=== PATIENT | female | born 1975 | race Hispanic/Latino ===

== ENCOUNTER → 2024-01-21 | Outpatient (CLI) | payer OTHER ==
[~2024-01-21] VITALS: Ht 20.3 cm; Wt 146.9 kg
== END | disposition home or self-care (01) ==
LOC: DTH 08:00
PROVIDERS: ATTEND Surgery
DX: E66.01 Morbid (severe) obesity due to excess calories (principal); E11.9 Type 2 diabetes mellitus without complications; K21.9 Gastro-esophageal reflux disease without esophagitis; E78.00 Pure hypercholesterolemia, unspecified; K76.0 Fatty (change of) liver, not elsewhere classified; G47.33 Obstructive sleep apnea (adult) (pediatric); Z68.41 Body mass index [BMI] 40.0-44.9, adult; Z71.3 Dietary counseling and surveillance
CPT/HCPCS: 97802

== ENCOUNTER → 2024-01-21 | Outpatient (CLI) | payer MEDICARE ==
[2024-01-21 10:17] LABS: HEMOGLOBIN A1C 11.8 % (4.0-6.0)
[2024-01-21 10:21] LABS: BASOPHILS # (AUTO) 0.06 K/uL (0.00-0.20); BASOPHILS % (AUTO) 0.7 % (0.0-5.0); EOSINOPHILS # (AUTO) 0.21 K/uL (0.00-0.70); EOSINOPHILS % (AUTO) 2.4 % (0.0-8.0); HEMATOCRIT 42.1 % (36-48); IMMATURE GRANULOCYTE ABSOLUTE 0.03 K/uL (0-1); LYMPHOCYTES # (AUTO) 2.4 K/uL (1.0-4.8); LYMPHOCYTES % (AUTO) 26.8 % (21.0-51.0); MEAN CORPUSCULAR HEMOGLOBIN 26.7 pg (27.0-33.0); MEAN CORPUSCULAR HGB CONC 30.6 g/dL (32.0-36.0); MEAN CORPUSCULAR VOLUME 87.2 fL (79-99); MONOCYTES # (AUTO) 0.5 K/uL (0.1-1.0); NEUTROPHILS # (AUTO) 5.6 K/uL (1.8-7.7); NEUTROPHILS % (AUTO) 63.8 % (40.0-77.0); PLATELET COUNT (AUTO) 321 K/uL (130-400); RED BLOOD CELL COUNT(AUTO) 4.83 MIL/uL (4.00-5.50); RED CELL DISTRIBUTION WIDTH 15.8 % (11.0-15.5); WHITE BLOOD COUNT (AUTO) 8.8 K/uL (4.8-10.8)
[2024-01-21 10:48] LABS: ALBUMIN 3.4 g/dL (3.5-5.0); BILIRUBIN,TOTAL 0.2 mg/dL (0.2-1.0); CREATININE 1.1 mg/dL (0.5-1.0); MAGNESIUM 1.6 mg/dL (1.80-2.40); T4 (THYROXINE) 6.8 ug/dL (4.7-13.3); THYROID STIMULATING HORMONE 70.44 uIU/mL (0.36-3.74); TOTAL PROTEIN, SERUM 7.7 g/dL (6.0-8.3)
== END | disposition home or self-care (01) ==
LOC: LAB 09:14
PROVIDERS: ATTEND Surgery
DX: Z01.818 Encounter for other preprocedural examination (principal); E11.9 Type 2 diabetes mellitus without complications; E78.00 Pure hypercholesterolemia, unspecified; G47.33 Obstructive sleep apnea (adult) (pediatric); K21.9 Gastro-esophageal reflux disease without esophagitis; K76.0 Fatty (change of) liver, not elsewhere classified; E66.01 Morbid (severe) obesity due to excess calories
CPT/HCPCS: 36415; 71045; 80053; 80061; 82306; 82607; 82746; 83036; 83540; 83735; 84207; 84425; 84436; 84443; 84446; 84481; 84590; 84630; 85025; 93005

== ENCOUNTER → 2024-01-30 | Outpatient (CLI) | payer OTHER | END | disposition home or self-care (01) | LOC: OIH 12:51 | PROVIDERS: ATTEND Internal Medicine Cardiovascular Disease | DX: Z13.6 Encounter for screening for cardiovascular disorders (principal) | CPT/HCPCS: 75571 ==

== ENCOUNTER → 2024-02-18 | Outpatient (CLI) | payer OTHER | END | disposition home or self-care (01) | LOC: DTH 14:57 | PROVIDERS: ATTEND Surgery | DX: E66.01 Morbid (severe) obesity due to excess calories (principal); E11.9 Type 2 diabetes mellitus without complications; K21.9 Gastro-esophageal reflux disease without esophagitis; E78.00 Pure hypercholesterolemia, unspecified; K76.0 Fatty (change of) liver, not elsewhere classified; Z68.41 Body mass index [BMI] 40.0-44.9, adult; Z71.3 Dietary counseling and surveillance | CPT/HCPCS: 97803 ==

== ENCOUNTER → 2024-03-12 | Outpatient (CLI) | payer OTHER | END | disposition home or self-care (01) | LOC: DTH 08:38 | PROVIDERS: ATTEND Surgery | DX: E66.01 Morbid (severe) obesity due to excess calories (principal); E11.9 Type 2 diabetes mellitus without complications; K21.9 Gastro-esophageal reflux disease without esophagitis; E78.00 Pure hypercholesterolemia, unspecified; Z68.41 Body mass index [BMI] 40.0-44.9, adult; Z71.3 Dietary counseling and surveillance | CPT/HCPCS: 97803 ==

== ENCOUNTER 2024-07-27 19:10 | Emergency (ER) | payer MEDICARE ==
[~2024-07-27] VITALS: Ht 172.7 cm; Wt 120.2 kg
[~2024-07-27 19:10] MED LIST: AZIL40TA PO; EMPA10TA PO; LAMO200T PO; LEVO175C2 PO; MULT-1367 PO; PITA4TAB2 PO; SITA1TAB6 PO; VITAD50000 PO
--- NOTE | 2024-07-27 19:28 | ERN ---
ED Note History of Present Illness Stated Complaint: C/O LOWER BACK PAIN WITH ABDOMINAL DISCOMFORT Chief Complaint: Back Pain-No Injury Time Seen by MD: 19:20 Dictation: PATIENT IS A 49-YEAR-OLD FEMALE COMING IN TODAY WITH DECREASED URINATION, CONSTIPATION FOR THREE DAYS, RIGHT FLANK PAIN THAT RADIATES TO RIGHT LOWER QUADRANT. SHE HAS NO NAUSEA VOMITING NO FEVER NO CHILLS. STATES SHE IS STATUS POST A GASTRIC BYPASS BY DR. ANNITA RAMIREZ AT [facility] [place] [facility] ONE MONTH AGO. Allergies: Coded Allergies: No Known Drug Allergies (Verified Allergy, Unknown, 06/19/24) adhesive tape (Unverified Allergy, Unknown, RASH, 06/19/24) indocyanine green (Unverified Allergy, Unknown, RASH, 06/19/24) levetiracetam (Unverified Adverse Reaction, Mild, SEIZURES, 06/19/24) Home Meds Reported Medications Multivitamin (Multivitamin) 1 Each Tablet, 1 TAB PO DAILY for 30 Days, #30 TAB 0 Refills 06/19/24 Empagliflozin (Jardiance) 10 Mg Tablet, 10 MG PO DAILY, TAB 06/19/24 Pitavastatin Calcium (Livalo) 4 Mg Tablet, 1 TAB PO DAILY for 30 Days, #30 TAB 0 Refills 06/19/24 Cholecalciferol (Vitamin D3) 1,250 Mcg (22517 Unit) Cap, 1 CAP PO QWEEK for 28 Days, #4 CAP 0 Refills 06/19/24 Levothyroxine Sodium (Levothyroxine) 175 Mcg Capsule, 1 CAP PO DAILY for 30 Days, #30 CAP 0 Refills 06/19/24 Azilsartan Medoxomil (Edarbi) 40 Mg Tablet, 1 TAB PO DAILY for 30 Days, #30 TAB 0 Refills 06/19/24 Lamotrigine (Lamictal) 200 Mg Tablet, 1.5 TAB PO BID for 30 Days, #60 TAB 0 Refills 06/19/24 Sitagliptin Phos/Metformin HCl (Janumet 50-1,000 mg Tablet) 50 Mg-1,000 Mg Tablet, 1 TAB PO BID for 30 Days, #60 TAB 0 Refills 06/19/24 Past Medical History Past Medical History: Seizure Additional Past Medical Hx: HX OF EPILEPSY Surgical History: Cholecystectomy, Other, Surgical History Other: GASTRIC BYPASS (06/2024); THYROIDECTOMY History: Not Applicable RN Note Reviewed/Agreed w/PFSH: Yes Review of System Dictation CONSTITUTIONAL: NEGATIVE EXCEPT FOR HPI HEAD/FACE: NEGATIVE EXCEPT FOR HPI EENT: NEGATIVE EXCEPT FOR HPI RESPIRATORY: NEGATIVE EXCEPT FOR HPI GASTROINTESTINAL/ABDOMINAL: NEGATIVE EXCEPT FOR HPI DECREASED URINATION/RIGHT FLANK PAIN RADIATES TO RIGHT LOWER QUADRANT LAST/CONSTIPATION THREE DAYS GENITOURINARY: NEGATIVE EXCEPT FOR HPI MUSCULOSKELETAL: NEGATIVE EXCEPT FOR HPI INTEGUMENTARY: NEGATIVE EXCEPT FOR HPI NEUROLOGICAL/PSYCH: NEGATIVE EXCEPT FOR HPI HEMATOLOGIC/LYMPHATIC: NEGATIVE EXCEPT FOR HPI ALL SYSTEMS NEGATIVE, EXCEPT NOTED ABOVE. 13 POINT REVIEW OF SYSTEMS ASSESSED AND ALL NEGATIVE EXCEPT FOR ABOVE. Initial Vital Sign VS Vital Signs Date Time Temp Pulse Resp B/P (MAP) Pulse Ox O2 Delivery O2 Flow Rate FiO2 07/27/24 19:12 98.8 68 20 109/69 100 Room Air Physical Exam Dictation VITAL SIGNS REVIEWED GENERAL APPEARANCE: ALERT, ORIENTED X 3, MILD ACUTE DISTRESS, WELL DEVELOPED, NOURISHED. OBESE HEAD AND FACE: NON-TRAUMATIC. EYES: PERRL, PINK CONJUNCTIVAS, EYELID NO TRAUMA, ANTERIOR CHAMBER WITH ARCUS SENILIS. EARS: PINNAS INTACT AND NO SIGNS OF TRAUMA OR ERYTHEMA EAR CANALS CLEAR AND NO DISCHARGE TM NO ERYTHEMA NOSE: NO DISCHARGE, NO BLEEDING. OROPHARYNX: MOUTH NORMAL, TONGUE PINK, PHARYNX CLEAR,NO ERYTHEMA, TONSILS NO EXUDATES, NO ABSCESSES NOTED, MUCOUS MEMBRANE MOIST NECK: SUPPLE, NON-TENDER, NO THYROMEGALY, NO MASSES, NO JVD, NO BRUITS BREAST:DEFERRED CHEST:NO TENDERNESS, NO CREPITUS, NO PARADOXICAL MOVEMENT, NO RETRACTIONS LUNGS:CLEAR, WELL-VENTILATED, SYMMETRIC, NO RALES, NO WHEEZING, NO RHONCHI, NO STRIDOR, GOOD BREATH SOUNDS BILATERALLY HEART: REGULAR RATE, REGULAR RHYTHM, NO MURMUR, NO GALLOPS VASCULAR: NO PERIPHERAL EDEMA, ABDOMEN: SOFT, POSITIVE BOWEL SOUNDS, NONDISTENDED, NO GUARDING, NONTENDER, NO REBOUND, NO MASSES NO HEPATOMEGALY, NO SPLENOMEGALY, NO RIVERA'S SIGN, NO HERNIAS. NEGATIVE CVAT RECTAL: DEFERRED GENITAL: DEFERRED NEUROLOGICAL: NORMAL SPEECH, MOTOR FUNCTION INTACT, SENSORY FUNCTION INTACT MUSCULOSKELETAL: NECK NONTENDER, FULL RANGE OF MOTION, BACK NONTENDER, FULL RANGE OF MOTION, EXTREMITIES: NONTENDER, FULL RANGE OF MOTION SKIN: COLOR PINK, DRY, NO TURGOR, NO RASH, NO LACERATIONS, NO ABRASIONS, NO CONTUSIONS. LYMPHATIC: DEFERRED Results (Laboratory/Radiology) Laboratory/Radiology Laboratory Tests Test 07/27/24 19:52 White Blood Count 8.6 K/uL (4.8-10.8) Red Blood Count 4.53 MIL/uL (4.00-5.50) Hemoglobin 12.8 g/dL (12.0-16.0) Hematocrit 40.9 % (36-48) Mean Corpuscular Volume 90.3 fL (79-99) Mean Corpuscular Hemoglobin 28.3 pg (27.0-33.0) Mean Corpuscular Hemoglobin Concent 31.3 g/dL (32.0-36.0) L Red Cell Distribution Width 14.8 % (11.0-15.5) Platelet Count 231 K/uL (130-400) Mean Platelet Volume 11.7 fL (7.5-10.5) H Immature Granulocyte % (Auto) 0.4 % (0-1) Neutrophils (%) (Auto) 62.8 % (40.0-77.0) Lymphocytes (%) (Auto) 25.4 % (21.0-51.0) Monocytes (%) (Auto) 8.8 % (3.0-13.0) Eosinophils (%) (Auto) 1.9 % (0.0-8.0) Basophils (%) (Auto) 0.7 % (0.0-5.0) Neutrophils # (Auto) 5.4 K/uL (1.8-7.7) Lymphocytes # (Auto) 2.2 K/uL (1.0-4.8) Monocytes # (Auto) 0.8 K/uL (0.1-1.0) Eosinophils # (Auto) 0.16 K/uL (0.00-0.70) Basophils # (Auto) 0.06 K/uL (0.00-0.20) Absolute Immature Granulocyte (auto 0.03 K/uL (0-1) Nucleated Red Blood Cells 0.0 % (0.0-0.19) Sodium Level 144 mmol/L (136-145) Potassium Level 4.2 mmol/L (3.5-5.1) Chloride Level 107 mmol/L (101-111) Carbon Dioxide Level 22 mmol/L (21-32) Blood Urea Nitrogen 17 mg/dL (7-18) Creatinine 1.5 mg/dL (0.5-1.0) H Glomerular Filtration Rate Calc 42 mL/min (>90) Random Glucose 164 mg/dL (70-105) H Total Calcium 9.8 mg/dL (8.5-10.1) Lipase 100 U/L (16-77) H CT ABDOMEN/PELVIS W/O CONTRAST INDICATION: RIGHT FLANK PAIN THAT RADIATES TO RIGHT LOWER QUADRANT OLIGURIA TECHNIQUE: CT ABDOMEN/PELVIS W/O CONTRAST. Oral contrast was not given. Coronal and sagittal reformats were performed. CT was performed with one or more of the following dose reduction techniques: Automated exposure control, adjustment of the mA and/or kV according to the patient's size, or use of the iterative reconstruction technique. Comparison: None. FINDINGS: The noncontrast nature this study limits evaluation of abdominal viscera. No pulmonary consolidation or pleural effusion is seen. There is hepatic steatosis. Cholecystectomy changes are noted. Postop changes seen in the stomach. 3.8 cm right adrenal gland nodule is seen likely representing lipid rich adenoma. Study is degraded due to patient's large body habitus. No acute findings in the pancreas and spleen. No hydronephrosis. The urinary bladder is partially collapsed. Reproductive organs are grossly within normal limits for patient's age. Mild constipation is seen. There is no bowel obstruction. Appendix is normal in caliber. Degenerative changes of the spine. Visualized aorta is normal in caliber. IMPRESSION: 1. Study is degraded due to patient's large body habitus. No hydronephrosis or renal calculus seen. 2. Right adrenal gland nodule likely representing lipid rich adenoma. 3. Mild constipation. Labs Reviewed?: Yes ED Course ED Course Orders Procedure Category Date Status Time Vital Signs Per CPOE 07/27/24 Transmitted Routine 19:19 Saline Lock Iv CPOE 07/27/24 Transmitted 19:19 Cbc With Differential LAB 07/27/24 Complete 19:19 Lipase LAB 07/27/24 Complete 19:19 Urinalysis Profile LAB 07/27/24 Logged 19:19 Basic Metabolic Panel LAB 07/27/24 Complete 19:19 0.9%Nacl 1000ml (Ns PHA 07/27/24 Complete 1000ml) 19:30 Ketorolac PHA 07/27/24 Complete Tromethamine 30mg/Ml 19:30 Ct Abdomen/Pelvis W/O CT 07/27/24 Resulted Contrast 19:24 Current Medications Medications (Trade) Dose Ordered Sig/Glynn Route PRN Reason Start Time Stop Time Status Last Admin Dose Admin Ketorolac Tromethamine (toRADol) 30 mg ONCE ONCE IVP 07/27/24 19:30 07/27/24 19:31 DC 07/27/24 20:40 Sodium Chloride 1,000 ml @ 0 mls/hr ONCE ONCE IV 07/27/24 19:30 07/27/24 19:31 DC 07/27/24 20:40 Vital Signs Date Time Temp Pulse Resp B/P (MAP) Pulse Ox O2 Delivery O2 Flow Rate FiO2 07/27/24 19:12 98.8 68 20 109/69 100 Room Air 2130, PATIENT STATES SHE IS READY TO GO HOME BUT CONTINUES TO HAVE PAIN SHE IS AWARE THAT SHE IS ONLY CONSTIPATED ON CT THERE IS NO NEPHROLITHIASIS OR HYDROURETER. SHE STATES SHE IS UNABLE TO URINATE AT THIS TIME AND WISHES TO LEAVE. SHE WILL BE GIVEN ADDITIONAL PAIN MED NOW, WE WILL BE DISCHARGED HOME WITH PAIN MEDS FOR LUMBAR STRAIN AND CONSTIPATION Medical Decision Making MDM MDM: DIFFERENTIAL DIAGNOSIS: HYDROURETER/HYDRONEPHROSIS/NEPHROLITHIASIS/URETERAL COLIC/UTI/ELECTROLYTE IMBALANCE/DEHYDRATION/CONSTIPATION RATIONALE: TESTS CONSIDERED AND ORDERED SECONDARY TO SHARED DECISION MAKING INCLUDE: RADIOLOGY/LABS, POLICE NOTE THAT PATIENT WAS UNABLE TO VOID PREVIOUS OUTSIDE RECORDS REVIEWED: OLD ER VISITS. REVIEWED RISK OF COMPLICATION AND/OR MORBIDITY OR MORTALITY OF PATIENT MANAGEMENT: NONE MEDICATIONS-PER MEDICATION RECONCILIATION SEE NURSE'S NOTES NEED FOR HOSPITALIZATION: PATIENT DOES NOT MEET CRITERIA FOR HOSPITALIZATION. NO NEED FOR EMERGENCY MAJOR/MINOR SURGERY: NO THERE ARE NO SOCIAL CONCERNS WITH THIS PATIENT. PRESCRIPTION DRUG MANAGEMENT TYLENOL WITH CODEINE/CYCLOBENZAPRINE/LACTULOSE PRESCRIPTIONS WILL INCLUDE SYMPTOMATIC CARE PATIENT'S PRIOR EXTERNAL MEDICAL RECORDS FROM OTHER ER VISITS WERE REVIEWED BY ME INDICATED. PRIOR TESTING AND RESULTS FROM PREVIOUS VISITS WERE REVIEWED. PRIOR TESTS WERE TAKEN INTO ACCOUNT WITH MEDICAL DECISION MAKING AND RESOURCE UTILIZATION, INDEPENDENT HISTORIAN/HISTORIANS WERE USED TO OBTAIN COMPLETE MEDICAL HISTORY. I INDEPENDENTLY INTERPRETED THE TEST THAT WERE PERFORMED, RESULTS WERE REVIEWED BY ME AND CONSIDERED FINDINGS ON RADIOLOGY IF ORDERED. MEDICAL MANAGEMENT AND EXAMINATION INTERPRETATION DISCUSSIONS WERE HAD BY ME WITH OTHER QUALIFIED HEALTHCARE PROFESSIONALS INDICATED FOR THE PATIENT'S CARE. DX & DISP Disposition: Discharge Departure Impression: Primary Impression: Acute lumbar myofascial strain Additional Impressions: Dehydration, Constipation, Elevated lipase, Uncontrolled diabetes mellitus Condition: Stable Scripts Cyclobenzaprine HCl (Cyclobenzaprine HCl) 10 Mg Tablet 1 TAB PO TID for muscle spasms for 10 Days, #30 TAB 0 Refills Prov: MARCO ENNIS NP 07/27/24 Acetaminophen with Codeine (Acetaminophen-Cod #3 Tablet) 300 Mg-30 Mg Tablet 1 TAB PO Q4H PRN for MODERATE TO SEVERE PAIN, #15 TAB 0 Refills Prov: MARCO ENNIS NP 07/27/24 Lactulose (Lactulose) 10 Gram/15 Ml Solution 30 ML PO BID for constipation, #250 ML 0 Refills Prov: MARCO ENNIS NP 07/27/24 Additional Instructions: Follow-up with primary care provider in 1 to 2 days. Take medications as directed here in the emergency room. Okay to continue home medications unless otherwise discussed during your visit in the emergency room today. Return to your nearest emergency room if symptoms worsen or if there is no improvement. Call 911 if you need immediate assistance. Take Tylenol or Motrin [id number] as needed and if no contraindications are present. Increase oral hydration. A wound culture or urine culture was ordered here in the emergency room department please follow-up with primary care provider and advise them to get repeat ports from our facility. If you had any Fadi wrap/splints that were applied here, please do not remove them until you see your primary care or specialty. Take Flexeril every 8 hours for the next three days. Take Tylenol with codeine as directed for severe pain. Take lactulose as directed with8 oz of water twice a day until you have stools see your primary care doctor for follow up Referrals: SELF,REFERRAL (PCP) Time of Disposition: 21:36 I have reviewed the case, and I agree with, Diagnosis and Plan MARCO ENNIS NP Jul 27, 2024 19:28
[2024-07-27 19:58] LABS: BASOPHILS # (AUTO) 0.06 K/uL (0.00-0.20); BASOPHILS % (AUTO) 0.7 % (0.0-5.0); EOSINOPHILS # (AUTO) 0.16 K/uL (0.00-0.70); EOSINOPHILS % (AUTO) 1.9 % (0.0-8.0); HEMATOCRIT 40.9 % (36-48); IMMATURE GRANULOCYTE ABSOLUTE 0.03 K/uL (0-1); LYMPHOCYTES # (AUTO) 2.2 K/uL (1.0-4.8); LYMPHOCYTES % (AUTO) 25.4 % (21.0-51.0); MEAN CORPUSCULAR HEMOGLOBIN 28.3 pg (27.0-33.0); MEAN CORPUSCULAR HGB CONC 31.3 g/dL (32.0-36.0); MEAN CORPUSCULAR VOLUME 90.3 fL (79-99); MONOCYTES # (AUTO) 0.8 K/uL (0.1-1.0); MONOCYTES % (AUTO) 8.8 % (3.0-13.0); NEUTROPHILS # (AUTO) 5.4 K/uL (1.8-7.7); NEUTROPHILS % (AUTO) 62.8 % (40.0-77.0); PLATELET COUNT (AUTO) 231 K/uL (130-400); RED BLOOD CELL COUNT(AUTO) 4.53 MIL/uL (4.00-5.50); RED CELL DISTRIBUTION WIDTH 14.8 % (11.0-15.5); WHITE BLOOD COUNT (AUTO) 8.6 K/uL (4.8-10.8)
--- NOTE | 2024-07-27 20:03 | NUR ---
WHEN ASKED FOR A URINE SAMPLE SHE STATED SHE ONLY URINATES EVERY OTHER DAY, SHE CAN NOT PROVIDE A SAMPLE AT THIS TIME.
[2024-07-27 20:06] LABS: CREATININE 1.5 mg/dL (0.5-1.0); POTASSIUM 4.2 mmol/L (3.5-5.1)
--- NOTE | 2024-07-27 20:16 | NUR ---
PATIENT TO CT SCAN.
[2024-07-27] MEDS: 0.9%NACL 1000ML 1,000 ML IV ONE (20:40)
[2024-07-27] MEDS: ketOROlac 30MG VIAL (30MG/ML) IVP ONE (20:40)
--- NOTE | 2024-07-27 20:48 | HMCIMG ---
CT ABDOMEN/PELVIS W/O CONTRAST INDICATION: RIGHT FLANK PAIN THAT RADIATES TO RIGHT LOWER QUADRANT OLIGURIA TECHNIQUE: CT ABDOMEN/PELVIS W/O CONTRAST. Oral contrast was not given. Coronal and sagittal reformats were performed. CT was performed with one or more of the following dose reduction techniques: Automated exposure control, adjustment of the mA and/or kV according to the patient's size, or use of the iterative reconstruction technique. Comparison: None. FINDINGS: The noncontrast nature this study limits evaluation of abdominal viscera. No pulmonary consolidation or pleural effusion is seen. There is hepatic steatosis. Cholecystectomy changes are noted. Postop changes seen in the stomach. 3.8 cm right adrenal gland nodule is seen likely representing lipid rich adenoma. Study is degraded due to patient's large body habitus. No acute findings in the pancreas and spleen. No hydronephrosis. The urinary bladder is partially collapsed. Reproductive organs are grossly within normal limits for patient's age. Mild constipation is seen. There is no bowel obstruction. Appendix is normal in caliber. Degenerative changes of the spine. Visualized aorta is normal in caliber. IMPRESSION: 1. Study is degraded due to patient's large body habitus. No hydronephrosis or renal calculus seen. 2. Right adrenal gland nodule likely representing lipid rich adenoma. 3. Mild constipation.
--- NOTE | 2024-07-27 21:23 | NUR ---
ALINE HAMPTON TALKING WITH PATIENT.
[2024-07-27] MEDS ORDERED: CYCL-309 PO (21:35)
[2024-07-27] MEDS ORDERED: ACET-2079 PO (21:35)
[2024-07-27] MEDS ORDERED: LACT-441 PO (21:35)
[2024-07-27] MEDS: CYCLOBENZAPRINE HCL 10 MG TABLET PO ONE (21:49)
[2024-07-27] MEDS: Solu-medROL 125MG VIAL IVP ONE (21:49)
[2024-07-27] MEDS: morPHINE 2 MG SYG IVP ONE (21:50)
[2024-07-27 22:24] VITALS: BP 110/78; PULSE 60; RESP 18; TEMP 98.4; O2SAT 98
== END 2024-07-27 22:26 | disposition home or self-care (01) ==
LOC: EDH 19:10
DX: S39.012A Strain of muscle, fascia and tendon of lower back, initial encounter (principal); E86.0 Dehydration; K59.00 Constipation, unspecified; E11.65 Type 2 diabetes mellitus with hyperglycemia; R74.8 Abnormal levels of other serum enzymes; G40.909 Epilepsy, unspecified, not intractable, without status epilepticus; Z79.84 Long term (current) use of oral hypoglycemic drugs; Z79.890 Hormone replacement therapy; Z90.49 Acquired absence of other specified parts of digestive tract; Z90.89 Acquired absence of other organs; Z98.84 Bariatric surgery status; X58.XXXA Exposure to other specified factors, initial encounter; Y93.89 Activity, other specified; Y92.89 Other specified places as the place of occurrence of the external cause; Y99.8 Other external cause status
CPT/HCPCS: 99285; 74176; 96374; 96375; 96361; 80048; 83690; 85025; 36415; J2270; J7030; J2919; J1885

== ENCOUNTER 2024-08-20 13:35 | Observation (INO) | payer MEDICARE ==
[~2024-08-20] VITALS: Ht 172.7 cm; Wt 117.9 kg
[~2024-08-20 13:35] MED LIST changes: +ACET-2079 PO; +CYCL-309 PO; +LACT-441 PO
--- NOTE | 2024-08-20 13:45 | NUR ---
SEEN BY DR. BREWER IN TRIAGE ROOM
[2024-08-20 14:00] LABS: BASOPHILS # (AUTO) 0.04 K/uL (0.00-0.20); BASOPHILS % (AUTO) 0.6 % (0.0-5.0); EOSINOPHILS # (AUTO) 0.11 K/uL (0.00-0.70); EOSINOPHILS % (AUTO) 1.7 % (0.0-8.0); HEMATOCRIT 40.7 % (36-48); IMMATURE GRANULOCYTE ABSOLUTE 0.01 K/uL (0-1); LYMPHOCYTES # (AUTO) 2.1 K/uL (1.0-4.8); LYMPHOCYTES % (AUTO) 31.1 % (21.0-51.0); MEAN CORPUSCULAR HEMOGLOBIN 27.9 pg (27.0-33.0); MONOCYTES # (AUTO) 0.5 K/uL (0.1-1.0); MONOCYTES % (AUTO) 8.1 % (3.0-13.0); NEUTROPHILS # (AUTO) 3.9 K/uL (1.8-7.7); NEUTROPHILS % (AUTO) 58.3 % (40.0-77.0); PLATELET COUNT (AUTO) 223 K/uL (130-400); RED BLOOD CELL COUNT(AUTO) 4.52 MIL/uL (4.00-5.50); RED CELL DISTRIBUTION WIDTH 15.7 % (11.0-15.5); WHITE BLOOD COUNT (AUTO) 6.7 K/uL (4.8-10.8)
--- NOTE | 2024-08-20 14:02 | EKG ---
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
[2024-08-20 14:05] LABS: CREATININE 1.4 mg/dL (0.5-1.0)
[2024-08-20 14:08] LABS: INR 1.07 (0.85-1.15); PROTHROMBIN TIME 11.9 SEC (9.6-11.6)
[2024-08-20 14:09] LABS: PARTIAL THROMBOPLASTIN TIME 27.9 SEC (26.3-35.5)
[2024-08-20 14:10] LABS: MAGNESIUM 1.6 mg/dL (1.80-2.40)
[2024-08-20 14:24] LABS: B-TYPE NATRIURETIC PEPTIDE 91 pg/mL (0-100)
--- NOTE | 2024-08-20 14:53 | ERN ---
General Chief Complaint: Chest Pain Stated Complaint: CP Time Seen by MD: 13:37 Source: patient History of Present Illness Initial Comments Patient is a 49-year-old female with a history of diabetes hypertension and cholesterol coming in with left-sided chest pain. Per patient the chest pain has been on and off for two days. She is concerned because the chest pain today was more persistent did not not resolve and decided to come in to be evaluated. Allergies: Coded Allergies: No Known Drug Allergies (Verified Allergy, Unknown, 06/19/24) adhesive tape (Unverified Allergy, Unknown, RASH, 06/19/24) indocyanine green (Unverified Allergy, Unknown, RASH, 06/19/24) levetiracetam (Unverified Adverse Reaction, Mild, SEIZURES, 06/19/24) Home Meds Active Scripts Cyclobenzaprine HCl (Cyclobenzaprine HCl) 10 Mg Tablet, 1 TAB PO TID for muscle spasms for 10 Days, #30 TAB 0 Refills Prov:MARCO ENNIS NP 07/27/24 Acetaminophen with Codeine (Acetaminophen-Cod #3 Tablet) 300 Mg-30 Mg Tablet, 1 TAB PO Q4H PRN for MODERATE TO SEVERE PAIN, #15 TAB 0 Refills Prov:MARCO ENNIS NP 07/27/24 Lactulose (Lactulose) 10 Gram/15 Ml Solution, 30 ML PO BID for constipation, #250 ML 0 Refills Prov:MARCO ENNIS NP 07/27/24 Reported Medications Multivitamin (Multivitamin) 1 Each Tablet, 1 TAB PO DAILY for 30 Days, #30 TAB 0 Refills 06/19/24 Empagliflozin (Jardiance) 10 Mg Tablet, 10 MG PO DAILY, TAB 06/19/24 Pitavastatin Calcium (Livalo) 4 Mg Tablet, 1 TAB PO DAILY for 30 Days, #30 TAB 0 Refills 06/19/24 Cholecalciferol (Vitamin D3) 1,250 Mcg (32115 Unit) Cap, 1 CAP PO QWEEK for 28 Days, #4 CAP 0 Refills 06/19/24 Levothyroxine Sodium (Levothyroxine) 175 Mcg Capsule, 1 CAP PO DAILY for 30 Days, #30 CAP 0 Refills 06/19/24 Azilsartan Medoxomil (Edarbi) 40 Mg Tablet, 1 TAB PO DAILY for 30 Days, #30 TAB 0 Refills 06/19/24 Lamotrigine (Lamictal) 200 Mg Tablet, 1.5 TAB PO BID for 30 Days, #60 TAB 0 Refills 06/19/24 Sitagliptin Phos/Metformin HCl (Janumet 50-1,000 mg Tablet) 50 Mg-1,000 Mg Tablet, 1 TAB PO BID for 30 Days, #60 TAB 0 Refills 06/19/24 Past Medical History Past Medical History: Diabetes-Type II, Hypertension, Seizure Medical History Other: HX OF EPILEPSY Past Surgical History: Cholecystectomy, Other, Surgical History Other: GASTRIC BYPASS (06/2024); THYROIDECTOMY Female( History) History: Not Applicable ROS Dictation CONSTITUTIONAL: No chills, no fever, no weakness, no diaphoresis, no malaise. HEAD/FACE: No signs of trauma. EENT: No eye pain, no blurred vision, no tearing, no double vision, no ear pain, no ear discharge, no nose pain, no nasal congestion, no throat pain, no throat swelling, no mouth pain. RESPIRATORY: No cough, no orthopnea, no SOB, no stridor, no wheezing. CARDIOVASCULAR: chest pain, no edema, no palpitations, no syncope. GASTROINTESTINAL/ABDOMINAL: No abdominal pain, no constipation, no diarrhea, no nausea, no vomiting. GENITOURINARY: No abnormal discharge, no dysuria, no frequent urination, no hematuria. No complaints of pain in the genitals. MUSCULOSKELETAL: No back pain, no gout, no joint pain, no joint swelling, no muscle pain, no muscle stiffness, no neck pain. INTEGUMENTARY: No change in color, no change in hair/nails, no dryness, no lesion, no lumps, no rash. NEUROLOGICAL/PSYCH: No anxiety, not depressed, no emotional problem, no headache, no numbness, no pre-existing deficit, no history of seizures, no tremors, no weakness. HEMATOLOGIC/LYMPHATIC: Not anemic, no history of blood clots, no apparent bleeding, no bruising, glands not swollen. All Systems Negative, Except as Noted. Physical Exam Physical Exam Dictation VITAL SIGNS: Reviewed. GENERAL APPEARANCE: Alert, oriented x3, no acute distress, obese. HEAD AND FACE: Non-traumatic. EYES: PERRL, pink conjunctivas, eyelid no trauma, anterior chamber clear. EARS: Pinnas intact and no signs of trauma or erythema. Ear canals clear and no discharge. TMs no erythema. NOSE: No discharge, no bleeding. OROPHARYNX: Mouth normal, teeth no caries, tongue pink. Pharynx clear, no erythema. Tonsils no exudates, no abscesses noted. Mucous membrane moist. NECK: Supple, non-tender, no thyromegaly, no masses, no JVD, no bruits. BREAST: Deferred. CHEST: No tenderness, no crepitus, no paradoxical movement, no retractions. LUNGS: Clear, well-ventilated, symmetric, no rales, no wheezing, no rhonchi, no stridor, good breath sounds bilaterally. HEART: Regular rate, regular rhythm, no murmur, no gallops. VASCULAR: No peripheral edema. ABDOMEN: Soft, positive bowel sounds, nondistended, no guarding, nontender, no rebound, no masses no hepatomegaly, no splenomegaly, no Mcclain's sign, no hernias. RECTAL: Deferred. GENITAL: Deferred. NEUROLOGICAL: Normal speech, gross motor function intact, gross sensory function intact. MUSCULOSKELETAL: Neck nontender, full range of motion, back nontender, full range of motion. EXTREMITIES: Nontender, full range of motion. SKIN: Color pink, dry, no turgor, no rash, no lacerations, no abrasions, no contusions. LYMPHATICS: Deferred. Results Laboratory and Microbiology Lab and Micro Result Laboratory Tests Test 08/20/24 13:50 08/20/24 20:22 White Blood Count 6.7 K/uL (4.8-10.8) Red Blood Count 4.52 MIL/uL (4.00-5.50) Hemoglobin 12.6 g/dL (12.0-16.0) Hematocrit 40.7 % (36-48) Mean Corpuscular Volume 90.0 fL (79-99) Mean Corpuscular Hemoglobin 27.9 pg (27.0-33.0) Mean Corpuscular Hemoglobin Concent 31.0 g/dL (32.0-36.0) L Red Cell Distribution Width 15.7 % (11.0-15.5) H Platelet Count 223 K/uL (130-400) Mean Platelet Volume 11.5 fL (7.5-10.5) H Immature Granulocyte % (Auto) 0.2 % (0-1) Neutrophils (%) (Auto) 58.3 % (40.0-77.0) Lymphocytes (%) (Auto) 31.1 % (21.0-51.0) Monocytes (%) (Auto) 8.1 % (3.0-13.0) Eosinophils (%) (Auto) 1.7 % (0.0-8.0) Basophils (%) (Auto) 0.6 % (0.0-5.0) Neutrophils # (Auto) 3.9 K/uL (1.8-7.7) Lymphocytes # (Auto) 2.1 K/uL (1.0-4.8) Monocytes # (Auto) 0.5 K/uL (0.1-1.0) Eosinophils # (Auto) 0.11 K/uL (0.00-0.70) Basophils # (Auto) 0.04 K/uL (0.00-0.20) Absolute Immature Granulocyte (auto 0.01 K/uL (0-1) Nucleated Red Blood Cells 0.0 % (0.0-0.19) Red Blood Cell Morphology See comments Prothrombin Time 11.9 SEC (9.6-11.6) H Prothromb Time International Ratio 1.07 (0.85-1.15) Activated Partial Thromboplast Time 27.9 SEC (26.3-35.5) Sodium Level 144 mmol/L (136-145) Potassium Level 4.0 mmol/L (3.5-5.1) Chloride Level 106 mmol/L (101-111) Carbon Dioxide Level 31 mmol/L (21-32) Blood Urea Nitrogen 9 mg/dL (7-18) Creatinine 1.4 mg/dL (0.5-1.0) H Glomerular Filtration Rate Calc 46 mL/min (>90) Random Glucose 150 mg/dL (70-105) H Total Calcium 9.4 mg/dL (8.5-10.1) Magnesium Level 1.60 mg/dL (1.80-2.40) L Total Creatine Kinase 155 U/L (21-232) # Troponin I High Sensitivity 8 ng/L (4-50) 9 ng/L (4-50) B-Type Natriuretic Peptide 91 pg/mL (0-100) D-Dimer Quantitative (PE/DVT) 468 ng/mL (0-500) EKG/XRAY/US/CT/MRI EKG Comment 08/20/2024 time 1:38 p.m. Ventricular rate 70 Sinus rhythm SD [address] wave elevation or depression MDM MDM: Differential diagnosis: Chest pain-unstable angina, gastroesophageal reflux, esophagitis, costochondritis Rationale: Tests considered and ordered secondary to shared decision making include: labs, ECG and radiology Previous outside records reviewed: Old ER visits. Risk of complication and/or morbidity or mortality of patient management: None Medications-Per medication reconciliation Need for hospitalization: Patient does meet criteria for hospitalization. Need for emergency major/minor surgery: No There are no social concerns with this patient. Prescription drug management Prescriptions will include symptomatic care Patient's prior external medical records from other ER visits were reviewed by me as indicated. Prior testing and results from previous visits were reviewed. Prior tests were taken into account with medical decision making and resource utilization, independent historian/historians were used to obtain complete medical history. I independently interpreted the test that were performed, results were reviewed by me and considered findings on radiology if ordered. Medical management and examination interpretation discussions were had by me with other qualified healthcare professionals as indicated for the patient's care. ED Course Orders Procedure Category Date Status Time Cbc With Differential LAB 08/20/24 Complete 13:45 Prothrombin Time With LAB 08/20/24 Complete INR 13:45 B-Type Natriuretic LAB 08/20/24 Complete Peptide 13:45 Chest 1vw RAD 08/20/24 Resulted 13:45 12 Lead Ekg Tracing- EKG 08/20/24 Complete Technical 13:45 Magnesium LAB 08/20/24 Complete 13:45 Creatine Kinase, Total LAB 08/20/24 Complete 13:45 Troponin I High LAB 08/20/24 Complete Sensitivity 13:45 Urinalysis Profile LAB 08/20/24 Logged 13:45 Partial LAB 08/20/24 Complete Thromboplastin Time 13:45 Basic Metabolic Panel LAB 08/20/24 Complete 13:45 Drug Screen Urine LAB 08/20/24 Logged 15:05 Acetaminophen 500mg PHA 08/20/24 Complete Tab (Tylenol 500mg T 16:00 Levetiracetam 500 PHA 08/20/24 In Process Mg/5 M[address] S[address] V (Keppra 5 16:30 Magnesium 2gm Premix PHA 08/20/24 Complete 50ml (Magnesium 2gm 16:44 D-Dimer LAB 08/20/24 Complete 19:47 Troponin I High LAB 08/20/24 Complete Sensitivity 20:04 Current Medications Medications (Trade) Dose Ordered Sig/Glynn Route PRN Reason Start Time Stop Time Status Last Admin Dose Admin Acetaminophen (TYLenol 500MG TAB) 1,000 mg ONCE ONCE PO 08/20/24 16:00 08/20/24 16:01 DC 08/20/24 15:45 Levetiracetam (kepPRA 500 MG/5 ML SD VIAL) 1,000 mg ONCE IV 08/20/24 16:30 09/19/24 16:29 08/20/24 16:12 Magnesium Sulfate 50 ml @ 0 mls/hr PROTOCOL STAT IV 08/20/24 16:44 08/20/24 16:46 DC 08/20/24 16:51 Vital Signs Date Time Temp Pulse Resp B/P (MAP) Pulse Ox O2 Delivery O2 Flow Rate FiO2 08/20/24 19:57 98.4 62 17 106/64 98 Room Air* 0 08/20/24 18:10 97.9 70 16 101/76 98 Room Air* 0 21 08/20/24 16:00 97.9 70 16 98/76 98 Room Air* 0 21 08/20/24 15:00 97.9 69 16 106/63 98 Room Air* 0 21 08/20/24 14:06 71 16 98/63 94 Room Air* 0 08/20/24 13:40 97.9 71 16 126/85 98 Room Air 7:00 p.m.-patient was signed out to me by a.m. physician that she presented with chest pain off and on with got worse today each time lasting about 15-20 seconds. She thought it would go away but overall for the past couple of days the symptoms have been bothering. She denied any association with food no nausea vomitings. No fever chills . Mostly located in the left precordial area. She has a history of diabetes mellitus, hypertension hypercholesterolemia. She was morbidly obese and underwent sleeve gastrectomy in July 01, 2024 and dropped her weight from 350+ lb to 260 lb She has never had any known cardiac problems. She is not on any control p ills. No history of any smoking tobacco or recreational drugs On exam the vital signs were all within normal limits pulse oximetry is 98% patient is not in any distress. Labs were significant for a creatinine of 1.4 magnesium 1.6. Brain natriuretic peptide is 91 1st set of troponins was negative. EKG had nonspecific changes and poor progression of the R-waves. D-dimer is were 460. Second set of troponins were negative as well Patient had a history of TIA a year ago and is very concerned about this ongoing pain and on my multiple re-evaluation there is a component of tenderness in the left precordial area which may simply be costochondritis however with all the risk factors, I recommended that further cardiac evaluation is necessary including an echocardiogram and a stress test etcetera and she was agreeable 9:13 p.m. patient was accepted by Neal Lees, mid-level provider for the hospitalist group to be admitted to Dr. Latif. HEART Score Response (Comments) Value History: Moderate suspicion (+1) 1 EKG: Repolarization changes 1 Age: 45-65yrs (+1) 1 Risk Factors: 1-2 risk factors (+1) 1 Initial Troponin: Normal limit (0) 0 HEART Score Risk: Low Risk for MACE (1-3) Total 4 Problem List Problem Lists: (1) Unstable angina (2) Diabetes mellitus (3) Hypercholesterolemia (4) Hypothyroid (5) Morbidly obese DX & DISP Disposition: Inpatient Decision to Admit Time: 08:15 Departure Impression: Primary Impression: Unstable angina Additional Impressions: Uncontrolled diabetes mellitus, Hypercholesterolemia, Hypothyroid, Morbid obesity Condition: Stable Additional Instructions: Patient was informed of all the diagnostic labs and procedures conducted in the emergency room today and demonstrated understanding of the results. I personally reviewed and interpreted all the diagnostic exams performed in the ER today. The patient will be admitted to the hospital for further treatment and evaluation. Disposition-admit to facility Condition-stable/guarded Course-uncertain at this time Pain status-decreased Assessment-exam unchanged Admission Certification- I certify that the patients status is appropriate and is based on my best clinical judgment and the patient's condition as documented in the medical records Referrals: ASIF BEARD (PCP) BUSHRA BREWER MD Aug 20, 2024 14:[address] MD Aug 20, 2024 21:16
[2024-08-20] MEDS: acetaMINOPHEN 500 MG TABLET PO ONE (15:45)
[2024-08-20] MEDS: leveTIRACEtam 500 MG/5 ML SD VIAL IV SCH (16:12)
--- NOTE | 2024-08-20 16:24 | HMCIMG ---
CHEST 1VW HISTORY: Chest pain COMPARISON: 01/21/2024 FINDINGS: A frontal projection of the chest was obtained. No acute pulmonary infiltrates is seen. The heart is borderline enlarged. Prominent interstitial markings are seen. No evidence of aortic calcification is seen. IMPRESSION: 1. No acute pulmonary infiltrate is seen. Prominent interstitial markings.
[2024-08-20] MEDS: MAGNESIUM 2GM PREMIX 50ML 50 ML IV STA (16:51)
--- NOTE | 2024-08-20 21:27 | HP ---
History of Present Illness Reason for Visit: chest pain History of Present Illness Ms. West is a 49-year-old female that was seen and examined today on 08/20/2024. Patient is a good historian and personal health. Patient states that she came to the emergency department with a chief complaint of chest pain. Onset was 10:00 a.m.. Location is midsternal. Pain actually originated on the left side of the chest. Duration is on and off. Character is described as tightness. Episodes last about 15 seconds. Patient reports multiple episodes throughout the day. There was no alleviating factors. Episodes occur spontaneously. There was no aggravating factors. Patient denies any associated dizziness or shortness and breath. Today in the emergency department CBC unremarkable, creatinine 1.4, magnesium 1.6, troponin unremarkable x2, no urinalysis has been collected or sent to lab, chest x-ray is unremarkable. Emergency room physician recommended that patient be admitted with a diagnosis of chest pain. Past Medical History Patient History: Carcinomas MOTHER, (STOMACH) FATHER, (STOMACH) Hypertension MOTHER, ADDITIONAL PAST MEDICAL HISTORY: [Diabetes mellitius type2, seizures, hypertension, hypothyroidism, hyperlipidemia, TIA] SOCIAL HISTORY: [Negative for smoking, alcohol use, drug use. Patient lives with the has been [facility]. Patient is typically independent of her ADLs. 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 Patient has good access to health care through her insurance. Patient denies difficulty paying her bills.] SURGICAL HISTORY: [Cholecystectomy, thyroidectomy, section x2, gastric bypass] Review of Systems General: No Fever, No Chills, No Night Sweats, No Fatigue, No Malaise, No Appetite, No Other HEENT: No Head Aches, No Visual Changes, No Eye Pain, No Ear Pain, No Dysphasia, No Sinus Congestion, No Post Nasal Drip, No Sore Throat, No Other Pulmonary: No Dyspnea, No Cough, No Pleuritic Chest Pain, No Other Cardiovascular: Chest Pain; No: Palpitations, Orthopnea, Paroxysmal Noc. Dyspnea, Edema, Lt Headedness, Other Gastrointestinal: No: Nausea, Vomiting, Abdominal Pain, Diarrhea, Constipation, Melena, Hematochezia, Other Genitourinary: No Dysuria, No Frequency, No Incontinence, No Hematuria, No Retention, No Other Musculoskeletal: No: other, neck pain, shoulder pain, arm pain, back pain, hand pain, leg pain, foot pain Skin: No Urticaria, No Rash, No Other Neurological: No: Weakness, Numbness, Incoordination, Change in speech, Confusion, Seizures, Other Allergies: Coded Allergies: No Known Drug Allergies (Verified Allergy, Unknown, 06/19/24) adhesive tape (Unverified Allergy, Unknown, RASH, 06/19/24) indocyanine green (Unverified Allergy, Unknown, RASH, 06/19/24) levetiracetam (Unverified Adverse Reaction, Mild, SEIZURES, 06/19/24) Scheduled Azilsartan Medoxomil (Edarbi), 1 TAB PO DAILY, (Reported) Azilsartan Medoxomil (Edarbi), 1 TAB PO DAILY, (Reported) Cholecalciferol (Vitamin D3), 1 CAP PO QWEEK, (Reported) Cyclobenzaprine HCl (Cyclobenzaprine HCl), 1 TAB PO TID Empagliflozin (Jardiance), 10 MG PO DAILY, (Reported) Empagliflozin (Jardiance), 1 TAB PO DAILY, (Reported) Lactulose (Lactulose), 30 ML PO BID Lamotrigine (Lamictal), 1.5 TAB PO BID, (Reported) Lamotrigine (Lamictal), 1 TAB PO BID, (Reported) Levothyroxine Sodium (Levothyroxine), 1 CAP PO DAILY, (Reported) Levothyroxine Sodium (Synthroid), 1 TAB PO DAILY, (Reported) Multivitamin (Multivitamin), 1 TAB PO DAILY, (Reported) Pitavastatin Calcium (Livalo), 1 TAB PO DAILY, (Reported) Pitavastatin Calcium (Livalo), 1 TAB PO DAILY, (Reported) Sitagliptin Phos/Metformin HCl (Janumet 50-1,000 mg Tablet), 1 TAB PO BID, (Reported) Sitagliptin Phos/Metformin HCl (Janumet 50-1,000 mg Tablet), 1 TAB PO BID, (Reported) Scheduled PRN Acetaminophen with Codeine (Acetaminophen-Cod #3 Tablet), 1 TAB PO Q4H PRN for MODERATE TO SEVERE PAIN Exam Vital Signs Vital Signs Date Time Temp Pulse Resp B/P (MAP) Pulse Ox O2 Delivery O2 Flow Rate FiO2 08/20/24 19:57 98.4 62 17 106/64 98 Room Air* 0 21 General Appearance: Alert, Oriented X3, Cooperative, No acute distress HEENT: Atraumatic, PERRLA, EOMI Respiratory: Clear to auscultation, Normal air movement, NL respiratory effort Cardiovascular: Regular rate, Regular rhythm, Normal S1, Normal S2 Abdominal: Normal bowel sounds, Soft, No tenderness Extremities: No edema Skin: No significant lesion Neuro: Normal gait, Normal speech, Strength at 5/5 X4 ext, Sensation intact, Cranial nerves 3-12 NL Psych/Mental Status: Mental status NL, Mood NL, Thoughts/Content NL Assessment/Plan ASSESSMENT: [ Chest pain, POA CKD 3A, POA Hypomagnesemia, POA Seizure disorder Diabetes mellitius type2 Hypertension Hypothyroidism Thyroid CA status post thyroidectomy TIA] PLAN: [ Admit patient to medical floor as inpatient status. Place patient on telemetry monitoring. Chest pain: Administer aspirin 162 mg by mouth times 1 dose Continue aspirin 81 mg by mouth once daily Nitropaste 0.5 inches anterior chest wall every 8 hours Trend troponin every 6 hours x 3 sets Supplemental oxygen to maintain O2 saturation greater than 92% Consult cardiology if any elevation in troponin or troponin uptrending CKD stage IIIA, hypomagnesemia: Avoid nephrotoxic agents when possible Renally dose all medications when possible Weight patient daily Intake and output every shift Replace magnesium per hospital protocol Diabetes mellitus type 2: Check hemoglobin A1c in a.m. Glucometer checks a.c. and HS 1800 ADA diet Humulin R sliding scale 1. Seizure disorder, hypertension, hypothyroidism: Seizure precautions Check TSH in a.m. Consider resuming home medications once they have been reconciled. GI prophylaxis, Protonix 40 mg by mouth once daily. DVT prophylaxis, heparin 5000 units subcutaneously twice daily. ADVANCED CARE PLANNING 1. Which of the following were discussed? Hospice Care - Yes Therapeutic options - Yes Advance Directives - Yes- patient states he does not have any advance directives in place at this time, however her Shailesh West can make decisions for her if she becomes unable. Other discussions - patient wishes to remain a full code at this time 2. Discussed with who? Patient 3. Voluntary nature of this service was explained to the patient? Yes 4. Amount of time spent - __ 16 minutes 5. Reviewed by Physician? (if this service was performed by NPP) Yes This document was generated in part using voice recognition software, occasional wrong word or sound alike substitutions may have occurred due to the inherent limitations of voice recognition software. Read the chart carefully and recognize using context, where the substitutions have occurred. Although every effort was made to edit the content, retanned leather roller and typing errors may occur ATTESTATION BY PHYSICIAN I have seen and examined the patient. I reviewed the documentation, medical decision making, and treatment plan as noted by the mid-level provider above. I agree with the findings and plan of care. MERRICK DE LEON [facility] Aug 20, 2024 21:27
[2024-08-20] MEDS ORDERED: MAGNESIUM 2GM PREMIX 50ML 50 ML IV PRN (21:30)
[2024-08-20] MEDS ORDERED: morPHINE 4 MG SYG IVP PRN (21:30)
[2024-08-20] MEDS ORDERED: ondanSETRON 4MG INJ IV PRN (21:30)
[2024-08-20] MEDS ORDERED: ASPIRIN 81MG CHEW TAB PO ONE (21:30)
[2024-08-20] MEDS ORDERED: acetaMINOPHEN 325 MG TAB PO PRN (21:30)
[2024-08-20] MEDS ORDERED: hydrALAZine 20MG/ML VIAL IV PRN (21:30)
[2024-08-20] MEDS ORDERED: NITROGLYCERIN 0.4 MG SL TAB SL PRN (21:30)
[2024-08-20] MEDS ORDERED: AZIL40TA PO (21:51)
[2024-08-20] MEDS ORDERED: LAMO200T PO (21:51)
[2024-08-20] MEDS ORDERED: LEVO175T4 PO (21:51)
[2024-08-20] MEDS ORDERED: SITA1TAB6 PO (21:51)
[2024-08-20] MEDS ORDERED: EMPA10TA PO (21:51)
[2024-08-20] MEDS ORDERED: PITA4TAB2 PO (21:51)
[2024-08-20] MEDS: PANTOPrazole 40 MG TAB DR PO ONE (22:17)
[2024-08-20] MEDS: ASPIRIN 325MG TAB PO ONE (22:17)
[2024-08-20] MEDS: NITROGLYCERIN 1GM OINT 1 INCH/1GM TD SCH (22:18)
[2024-08-20] MEDS: HEParin 5,000 UNIT VIAL SQ SCH (22:18)
--- NOTE | 2024-08-21 05:30 | NUR ---
HOLD NTG PATCH BP ON 70-80 SYTOLIC
--- NOTE | 2024-08-21 07:15 | PN ---
[facility] PROGRESS NOTE Date of Service: Aug 21, 2024 Time of Service: 07:09 SUBJECTIVE: [ ] Patient states that she came to the emergency department with a chief complaint of chest pain. Onset was 10:00 a.m.. Location is midsternal. Pain actually originated on the left side of the chest. Duration is on and off. Character is described as tightness. Episodes last about 15 seconds. Patient reports multiple episodes throughout the day. There was no alleviating factors. Episodes occur spontaneously. There was no aggravating factors. Patient denies any associated dizziness or shortness and breath. 08/21/24 patient is seen and examined remains in emergency room room 13. Patient is fully awake alert and oriented x3 reports no chest pain vital signs she is currently running hypotensive spouse reports she usually runs on the low side patient denied dizziness palpitations shortness a breath. Apparently patient does have a history of anxiety. TSH 18.3. Patient is currently on levothyroxine 175 mcq, troponin so far negative. Patient on room air appears to be in no distress. REVIEW OF SYSTEMS CONSTITUTIONAL: Denies fevers, chills, or night sweats. No unintentional weight loss reported. NEUROLOGICAL: Denies headache, amaurosis fugax, motor weakness, sensory deficit, vertigo/spinning sensation, gait abnormalities, or tremors. ENT: No hearing loss, otalgia, otorrhea, rhinitis, rhinorrhea, hoarseness, or sore throat. CARDIOVASCULAR: Denies any exertional angina, dyspnea on exertion, orthopnea, paroxysmal nocturnal dyspnea, palpitations, life-threatening arrhythmias, claudication. PULMONARY: Denies any shortness of breath, cough, phlegm/sputum, hemoptysis, pleuritic chest pain. SLEEP: Denies morning headaches, daytime somnolence or napping. Denies difficulty falling asleep, staying asleep, waking from sleep. Denies knowledge of snoring. GASTROINTESTINAL: Denies any type of dysphagia to either liquids or solids. Denies nausea, vomiting, pyrosis, early satiety, abdominal pain, diarrhea, constipation, or changes in stool consistency or caliber. Denies coffee-ground emesis, hematemesis, hematochezia, or melanotic stools. GENITOURINARY: Denies frequency, urgency, nocturia, hematuria or incontinence (Storage/Irritative symptoms.) Low urinary stream, straining to void, urinary intermittency or hesitancy, splitting of the voiding stream, terminal dribbling. ENDOCRINOLOGIC: Denies polyuria, polydipsia, polyphagia or heat/cold intolerances. HEMATOLOGIC: Denies thrombophilia/previous clots, or coagulopathy/bleeding disorders. ONCOLOGIC: Denies personal history of malignancy. DERMATOLOGIC: Denies rashes or pruritus. PSYCHIATRIC: Denies any suicidal or homicidal ideation. Denies hallucinations. PHYSICAL EXAM GENERAL APPEARANCE: The patient is awake, alert, and oriented, in no acute cardiopulmonary distress. NEUROLOGICAL: Cranial nerves II-XII grossly intact. Motor is 5/5 in bilateral upper and lower extremities proximal to distal. No sensory deficits. HEENT: Face is symmetric. Pupils are equal and reactive. Extraocular movements are intact. NECK: Supple. No JVD. No thyromegaly. No submental, submandibular, pre-/postauricular, occipital or supraclavicular lymphadenopathy. CHEST: Normal chest expansion. No Telemetry. LUNGS: Absence of any rales, rhonchi or any wheezing. CARDIOVASCULAR: Regular. S1 and S2 normal. No appreciable rubs, murmurs or gallops. ABDOMEN: Soft, nontender, and nondistended. There is no rebound, voluntary guarding, or rigidity. : Deferred. No Vigil. EXTREMITIES: Non-edematous and not cyanotic. No clubbing. Good capillary refill. SKIN: No skin breakdown. Vital Signs (last 8hr) Date Time Temp Pulse Resp B/P (MAP) Pulse Ox O2 Delivery O2 Flow Rate FiO2 08/21/24 06:36 98.2 72 16 95/52 98 Room Air* 0 21 08/21/24 01:44 98.2 66 16 107/62 98 Room Air* 0 21 LABS: Laboratory: Test 08/20/24 20:22 08/20/24 13:50 Range/Units D-Dimer Quantitative (PE/DVT) 468 0-500 ng/mL Troponin I High Sensitivity 9 4-50 ng/L White Blood Count 6.7 4.8-10.8 K/uL Red Blood Count 4.52 4.00-5.50 MIL/uL Hemoglobin 12.6 12.0-16.0 g/dL Hematocrit 40.7 36-48 % Mean Corpuscular Volume 90.0 79-99 fL Mean Corpuscular Hemoglobin 27.9 27.0-33.0 pg Mean Corpuscular Hemoglobin Concent 31.0 L 32.0-36.0 g/dL Red Cell Distribution Width 15.7 H 11.0-15.5 % Platelet Count 223 130-400 K/uL Mean Platelet Volume 11.5 H 7.5-10.5 fL Immature Granulocyte % (Auto) 0.2 0-1 % Neutrophils (%) (Auto) 58.3 40.0-77.0 % Lymphocytes (%) (Auto) 31.1 21.0-51.0 % Monocytes (%) (Auto) 8.1 3.0-13.0 % Eosinophils (%) (Auto) 1.7 0.0-8.0 % Basophils (%) (Auto) 0.6 0.0-5.0 % Neutrophils # (Auto) 3.9 1.8-7.7 K/uL Lymphocytes # (Auto) 2.1 1.0-4.8 K/uL Monocytes # (Auto) 0.5 0.1-1.0 K/uL Eosinophils # (Auto) 0.11 0.00-0.70 K/uL Basophils # (Auto) 0.04 0.00-0.20 K/uL Absolute Immature Granulocyte (auto 0.01 0-1 K/uL Nucleated Red Blood Cells 0.0 0.0-0.19 % Red Blood Cell Morphology See comments Prothrombin Time 11.9 H 9.6-11.6 SEC Prothromb Time International Ratio 1.07 0.85-1.15 Activated Partial Thromboplast Time 27.9 26.3-35.5 SEC Sodium Level 144 136-145 mmol/L Potassium Level 4.0 3.5-5.1 mmol/L Chloride Level 106 101-111 mmol/L Carbon Dioxide Level 31 21-32 mmol/L Blood Urea Nitrogen 9 7-18 mg/dL Creatinine 1.4 H 0.5-1.0 mg/dL Glomerular Filtration Rate Calc 46 >90 mL/min Random Glucose 150 H 70-105 mg/dL Total Calcium 9.4 8.5-10.1 mg/dL Magnesium Level 1.60 L 1.80-2.40 mg/dL Total Creatine Kinase 155 # 21-232 U/L B-Type Natriuretic Peptide 91 0-100 pg/mL Current Medications Medications (Trade) Dose Ordered Sig/Glynn Route PRN Reason Start Time Stop Time Status Last Admin Dose Admin Acetaminophen (TYLenol 325MG TAB) 650 mg Q6H PRN PO TEMPERATURE GREATER THAN 101.5 08/20/24 21:30 09/19/24 21:29 Aspirin (Aspirin 81mg Ec Tab) 81 mg DAILY PO 08/21/24 09:00 09/20/24 08:59 Heparin Sodium (Porcine) (HEParin 5,000 UNIT VIAL) 5,000 unit Q12H SQ 08/20/24 21:30 09/19/24 21:29 08/20/24 22:18 5,000 UNIT Hydralazine HCl (APRESOLine 20MG INJ) 10 mg Q6H PRN IV For:SBP above 160;DBP above 90 08/20/24 21:30 09/19/24 21:29 Insulin Human Regular (humuLIN R 100 UNIT/ML 3ML) INSULIN SLIDING SCAL... ACHS SQ 08/21/24 07:30 09/20/24 07:29 Levetiracetam (kepPRA 500 MG/5 ML SD VIAL) 1,000 mg ONCE IV 08/20/24 16:30 09/19/24 16:29 08/20/24 16:12 1,000 MG Magnesium Sulfate 50 ml @ 0 mls/hr PROTOCOL PRN IV h 08/20/24 21:30 09/19/24 21:29 Magnesium Sulfate 50 ml @ 0 mls/hr PROTOCOL STAT IV 08/20/24 16:44 08/20/24 16:46 DC 08/20/24 16:51 25 MLS/HR Morphine Sulfate (morPHINE 4MG SYG) 4 mg Q4H PRN IVP SEVERE PAIN (7-10) 08/20/24 21:30 08/27/24 21:29 Nitroglycerin (Nitroglycerin 1gm Oint) 0.5 inch Q8H TD 08/20/24 21:30 09/19/24 21:29 08/20/24 22:18 0.5 INCH Nitroglycerin (Nitrostat) 0.4 mg AD PRN SL CHEST PAIN 08/20/24 21:30 09/19/24 21:29 Ondansetron HCl (zoFRAN 4MG INJ) 4 mg Q6H PRN IV NAUSEA/VOMITING 08/20/24 21:30 09/19/24 21:29 Pantoprazole Sodium (PROTonix 40MG TAB) 40 mg DAILY PO 08/21/24 09:00 09/20/24 08:59 DIAGNOSTICS / RADIOLOGY: [ ] ASSESSMENT: Atypical Chest pain, POA suspecting GERD POA Hypotensive asymptomatic CKD 3A, POA Hypomagnesemia, POA Severe protein calorie malnutrition POA Seizure disorder Diabetes mellitius type2 Hypertension Hypothyroidism Thyroid CA status post thyroidectomy TIA] Anxiety disorder PLAN: [ ] Admit to medical-surgical with tele ACS protocol continue [id number] mg p.o. statin atorvastatin 20 at bedtime. We continue to replace electrolytes as per protocol. CKD stage IIIA, hypomagnesemia: Avoid nephrotoxic agents when possible Renally dose all medications when possible Weight patient daily Intake and output every shift Replace magnesium per hospital protocol Diabetes mellitus type 2: Check hemoglobin A1c in a.m. Glucometer checks a.c. and HS 1800 ADA diet Humulin R sliding scale 1. Seizure disorder, hypertension, hypothyroidism: Seizure precautions Check TSH in a.m. Consider resuming home medications once they have been reconciled. GI prophylaxis, Protonix 40 mg by mouth once daily. DVT prophylaxis, heparin 5000 units subcutaneously twice daily. ATTESTATION BY PHYSICIAN I have seen and examined the patient. I reviewed the documentation, medical decision making, and treatment plan as noted by the mid-level provider above. I agree with the findings and plan of care. Ping Medina MD, ELIZABETH NP Aug 21, 2024 07:15
[2024-08-21 07:26] LABS: BASOPHILS # (AUTO) 0.03 K/uL (0.00-0.20); BASOPHILS % (AUTO) 0.6 % (0.0-5.0); EOSINOPHILS # (AUTO) 0.16 K/uL (0.00-0.70); EOSINOPHILS % (AUTO) 3.2 % (0.0-8.0); HEMATOCRIT 40.3 % (36-48); IMMATURE GRANULOCYTE ABSOLUTE 0.02 K/uL (0-1); LYMPHOCYTES # (AUTO) 2.2 K/uL (1.0-4.8); LYMPHOCYTES % (AUTO) 43.9 % (21.0-51.0); MEAN CORPUSCULAR HEMOGLOBIN 27.9 pg (27.0-33.0); MEAN CORPUSCULAR HGB CONC 31.3 g/dL (32.0-36.0); MEAN CORPUSCULAR VOLUME 89.4 fL (79-99); MONOCYTES # (AUTO) 0.5 K/uL (0.1-1.0); NEUTROPHILS # (AUTO) 2.2 K/uL (1.8-7.7); NEUTROPHILS % (AUTO) 42.9 % (40.0-77.0); PLATELET COUNT (AUTO) 197 K/uL (130-400); RED BLOOD CELL COUNT(AUTO) 4.51 MIL/uL (4.00-5.50); RED CELL DISTRIBUTION WIDTH 15.7 % (11.0-15.5)
[2024-08-21] MEDS: INSULIN humuLIN R 100 UNIT/ML 3ML SQ SCH (07:30)
[2024-08-21 07:49] LABS: ALBUMIN 2.8 g/dL (3.5-5.0); CREATININE 1.3 mg/dL (0.5-1.0); PHOSPHORUS 3.7 mg/dL (2.5-4.9); POTASSIUM 3.9 mmol/L (3.5-5.1)
[2024-08-21 07:57] LABS: BILIRUBIN,TOTAL 0.4 mg/dL (0.2-1.0); MAGNESIUM 1.9 mg/dL (1.80-2.40); THYROID STIMULATING HORMONE 18.31 uIU/mL (0.36-3.74)
[2024-08-21] MEDS: PANTOPrazole 40 MG TAB DR PO SCH (09:05)
[2024-08-21] MEDS: ASPIRIN 81 MG EC TAB PO SCH (09:05)
--- NOTE | 2024-08-21 09:30 | NUR ---
hospitalist office 365 consultant at bedside marj wolfe
--- NOTE | 2024-08-21 12:38 | DS ---
Discharge Summary Hospital Course Summary: Patient states that she came to the emergency department with a chief complaint of chest pain. Onset was 10:00 a.m.. Location is midsternal. Pain actually originated on the left side of the chest. Duration is on and off. Character is described as tightness. Episodes last about 15 seconds. Patient reports multiple episodes throughout the day. There was no alleviating factors. Episodes occur spontaneously. There was no aggravating factors. Patient denies any associated dizziness or shortness and breath. 08/21/24 patient is seen and examined remains in emergency room room 13. Patient is fully awake alert and oriented x3 reports no chest pain vital signs she is currently running hypotensive spouse reports she usually runs on the low side patient denied dizziness palpitations shortness a breath. Apparently patient does have a history of anxiety. TSH 18.3. Patient is currently on levothyroxine 175 mcq patient does have a history of gastric bypass. troponin so far negative x3 reports no chest pain discomfort. Patient on room air appears to be in no distress. Patient is clinically stable for discharge. Assessment/Plan: Atypical Chest pain, POA suspecting GERD POA Hypotensive asymptomatic CKD 3A, POA Hypomagnesemia, POA Severe protein calorie malnutrition POA Seizure disorder Diabetes mellitius type2 Hypertension Hypothyroidism Thyroid CA status post thyroidectomy TIA] Anxiety disorder PLAN: [ ] ADMISSION DATE: 08/20 2024 DISCHARGE DATE: 08/21/2024 DISPOSITION: Home CONDITION: Stable MOTORSPORTS TECHNICIAN(S): None FOLLOW UP APPOINTMENT(S): PCP 2-3 days PROCEDURES: None IMAGING (S) report attached to summary : MICROBIOLOGY: report attached to summary; none ACTIVITY: Ad shonna HOME MEDICATIONS reviewed remain the same CHANGES ON HOME MEDICATIONS none NEW MEDICATIONS not apply able TEACHING: Emergency instructions: The patient was instructed to present to the nearest Emergency Department or call 911 should their symptoms return or worsen. Home Medications: Reported Medications Levothyroxine Sodium (Synthroid) 175 Mcg Tablet, 1 TAB PO DAILY for 30 Days, #30 TAB 0 Refills 08/20/24 Empagliflozin (Jardiance) 10 Mg Tablet, 1 TAB PO DAILY for 30 Days, #30 TAB 0 Refills 08/20/24 Azilsartan Medoxomil (Edarbi) 40 Mg Tablet, 1 TAB PO DAILY for 30 Days, #30 TAB 0 Refills 08/20/24 Pitavastatin Calcium (Livalo) 4 Mg Tablet, 1 TAB PO DAILY for 30 Days, #30 TAB 0 Refills 08/20/24 Sitagliptin Phos/Metformin HCl (Janumet 50-1,000 mg Tablet) 50 Mg-1,000 Mg Tablet, 1 TAB PO BID for 30 Days, #60 TAB 0 Refills 08/20/24 Lamotrigine (Lamictal) 200 Mg Tablet, 1 TAB PO BID for 30 Days, #60 TAB 0 Refills 08/20/24 Discontinued Reported Medications Multivitamin (Multivitamin) 1 Each Tablet, 1 TAB PO DAILY for 30 Days, #30 TAB 0 Refills 06/19/24 Empagliflozin (Jardiance) 10 Mg Tablet, 10 MG PO DAILY, TAB 06/19/24 Pitavastatin Calcium (Livalo) 4 Mg Tablet, 1 TAB PO DAILY for 30 Days, #30 TAB 0 Refills 06/19/24 Cholecalciferol (Vitamin D3) 1,250 Mcg (31218 Unit) Cap, 1 CAP PO QWEEK for 28 Days, #4 CAP 0 Refills 06/19/24 Levothyroxine Sodium (Levothyroxine) 175 Mcg Capsule, 1 CAP PO DAILY for 30 Days, #30 CAP 0 Refills 06/19/24 Azilsartan Medoxomil (Edarbi) 40 Mg Tablet, 1 TAB PO DAILY for 30 Days, #30 TAB 0 Refills 06/19/24 Lamotrigine (Lamictal) 200 Mg Tablet, 1.5 TAB PO BID for 30 Days, #60 TAB 0 Refills 06/19/24 Sitagliptin Phos/Metformin HCl (Janumet 50-1,000 mg Tablet) 50 Mg-1,000 Mg Tablet, 1 TAB PO BID for 30 Days, #60 TAB 0 Refills 06/19/24 Discontinued Scripts Cyclobenzaprine HCl (Cyclobenzaprine HCl) 10 Mg Tablet, 1 TAB PO TID for muscle spasms for 10 Days, #30 TAB 0 Refills Prov:MARCO ENNIS NP 07/27/24 Acetaminophen with Codeine (Acetaminophen-Cod #3 Tablet) 300 Mg-30 Mg Tablet, 1 TAB PO Q4H PRN for MODERATE TO SEVERE PAIN, #15 TAB 0 Refills Prov:MARCO ENNIS BASE FILLER 07/27/24 Lactulose (Lactulose) 10 Gram/15 Ml Solution, 30 ML PO BID for constipation, #250 ML 0 Refills Prov:MARCO ENNIS BASE FILLER 07/27/24 Continued Medications: Azilsartan Medoxomil (Edarbi) 40 Mg Tablet 1 TAB PO DAILY for 30 Days, #30 TAB 0 Refills Empagliflozin (Jardiance) 10 Mg Tablet 1 TAB PO DAILY for 30 Days, #30 TAB 0 Refills Lamotrigine (Lamictal) 200 Mg Tablet 1 TAB PO BID for 30 Days, #60 TAB 0 Refills Levothyroxine Sodium (Synthroid) 175 Mcg Tablet 1 TAB PO DAILY for 30 Days, #30 TAB 0 Refills Pitavastatin Calcium (Livalo) 4 Mg Tablet 1 TAB PO DAILY for 30 Days, #30 TAB 0 Refills Sitagliptin Phos/Metformin HCl (Janumet 50-1,000 mg Tablet) 50 Mg-1,000 Mg Tablet 1 TAB PO BID for 30 Days, #60 TAB 0 Refills Time spent arranging discharge: 31-60 minutes ATTESTATION BY PHYSICIAN I have seen and examined the patient. I reviewed the documentation, medical decision making, and treatment plan as noted by the mid-level provider above. I agree with the findings and plan of care. Ping Medina MD, ELIZABETH NP Aug 21, 2024 12:38
--- NOTE | 2024-08-21 13:09 | NUR ---
DCP: HOME Sw met with pt and her Shailesh [address] [phone]. Pt states she lives independently with her , uses no DME or in home care services. PCP is Chevy Altamirano and uses [facility]. Pt states she has appt 09/04 for possible dialysis start with in [place]. Pt denies dc needs and will return home at dc Addendum: 08/21/24 at 1313 by COLIN DELANEY Amended: Links added.
[2024-08-21 14:03] VITALS: BP 106/58; PULSE 62; RESP 16; TEMP 98.2; O2SAT 98
--- NOTE | 2024-08-21 14:20 | NUR ---
PT DISCHARGED HOME
[2024-08-21] MEDS ORDERED: atorVAStatin 20 MG TABLET PO SCH (21:00)
[2024-08-22] MEDS ORDERED: levoTHYROxine 25 MCG TABLET PO SCH (06:30)
[2024-08-22] MEDS ORDERED: levoTHYROxine 150 MCG TABLET PO SCH (06:30)
== END 2024-08-21 14:09 | disposition home or self-care (01) ==
LOC: EDH 13:35 → EDHIP 21:14 → INTOOBSV 21:14 → EDHIP 08-21 14:20
PROVIDERS: ADMIT Internal Medicine; ATTEND Internal Medicine
DX: I12.9 Hypertensive chronic kidney disease with stage 1 through stage 4 chronic kidney disease, or unspecified chronic kidney disease (principal); E11.22 Type 2 diabetes mellitus with diabetic chronic kidney disease; E83.42 Hypomagnesemia; E89.0 Postprocedural hypothyroidism; G40.909 Epilepsy, unspecified, not intractable, without status epilepticus; N18.31 Chronic kidney disease, stage 3a; E78.00 Pure hypercholesterolemia, unspecified; F41.9 Anxiety disorder, unspecified; E11.65 Type 2 diabetes mellitus with hyperglycemia; E66.01 Morbid (severe) obesity due to excess calories; Z79.82 Long term (current) use of aspirin; Z79.84 Long term (current) use of oral hypoglycemic drugs; Z85.850 Personal history of malignant neoplasm of thyroid; Z86.73 Personal history of transient ischemic attack (TIA), and cerebral infarction without residual deficits; Z98.84 Bariatric surgery status; Z68.39 Body mass index [BMI] 39.0-39.9, adult; Z79.899 Other long term (current) drug therapy; Z98.890 Other specified postprocedural states
CPT/HCPCS: 96372 ×2; 99285; 82550; 83735 ×2; 84484 ×3; 80048; 83880; 85025 ×2; 85378; 85610; 85730; 36415 ×2; 71045; 96365; 96366; 96368; 93005; 83036; 84443; 84100; 80061; 80053; 82948 ×2; J3475; J1953; J1644 ×2; G0378 ×2

== ENCOUNTER 2024-10-21 19:12 | Emergency (ER) | payer MEDICARE ==
[~2024-10-21] VITALS: Ht 172.7 cm; Wt 100.7 kg
[~2024-10-21 19:12] MED LIST changes: -ACET-2079 PO; -CYCL-309 PO; -LACT-441 PO; -LEVO175C2 PO; +LEVO175T4 PO; -MULT-1367 PO; -VITAD50000 PO
--- NOTE | 2024-10-21 19:24 | ERN ---
ED Note History of Present Illness Stated Complaint: WEAKNESS Chief Complaint: Weakness Time Seen by MD: 19:20 Time Seen by Midlevel: 19:20 Dictation: PATIENT IS A 49-YEAR-OLD FEMALE HERE WITH COMPLAINTS OF NAUSEA VOMITING EPIGASTRIC PAIN AND A HISTORY OF CANCER FOR THE LAST FOUR DAYS. NO FEVER NO CHILLS NO DIARRHEA. SHE STATES SHE CALLED HER PRIMARY CARE DOCTOR TODAY WHO ADV ISED HER TO COME TO THE HOSPITAL FOR REHYDRATION AND FURTHER EVALUATION. Allergies: Coded Allergies: No Known Drug Allergies (Verified Allergy, Unknown, 06/19/24) adhesive tape (Unverified Allergy, Unknown, RASH, 06/19/24) indocyanine green (Unverified Allergy, Unknown, RASH, 06/19/24) levetiracetam (Unverified Adverse Reaction, Mild, SEIZURES, 06/19/24) Home Meds Reported Medications Levothyroxine Sodium (Synthroid) 175 Mcg Tablet, 1 TAB PO DAILY for 30 Days, #30 TAB 0 Refills 08/20/24 Empagliflozin (Jardiance) 10 Mg Tablet, 1 TAB PO DAILY for 30 Days, #30 TAB 0 Refills 08/20/24 Azilsartan Medoxomil (Edarbi) 40 Mg Tablet, 1 TAB PO DAILY for 30 Days, #30 TAB 0 Refills 08/20/24 Pitavastatin Calcium (Livalo) 4 Mg Tablet, 1 TAB PO DAILY for 30 Days, #30 TAB 0 Refills 08/20/24 Sitagliptin Phos/Metformin HCl (Janumet 50-1,000 mg Tablet) 50 Mg-1,000 Mg Tablet, 1 TAB PO BID for 30 Days, #60 TAB 0 Refills 08/20/24 Lamotrigine (Lamictal) 200 Mg Tablet, 1 TAB PO BID for 30 Days, #60 TAB 0 Refills 08/20/24 Past Medical History Past Medical History: Diabetes-Type II, Hypertension, Seizure Additional Past Medical Hx: HX OF EPILEPSY Surgical History: Cholecystectomy, Other, Surgical History Other: GASTRIC BYPASS (06/2024); THYROIDECTOMY PSYCH History: no pertinent psych hx History: Not Applicable RN Note Reviewed/Agreed w/PFSH: Yes Review of System Dictation CONSTITUTIONAL: NEGATIVE EXCEPT FOR HPI WEAKNESS HEAD/FACE: NEGATIVE EXCEPT FOR HPI EENT: NEGATIVE EXCEPT FOR HPI RESPIRATORY: NEGATIVE EXCEPT FOR HPI GASTROINTESTINAL/ABDOMINAL: NEGATIVE EXCEPT FOR HPI EPIGASTRIC PAIN WITH NAUSEA VOMITING GENITOURINARY: NEGATIVE EXCEPT FOR HPI MUSCULOSKELETAL: NEGATIVE EXCEPT FOR HPI INTEGUMENTARY: NEGATIVE EXCEPT FOR HPI NEUROLOGICAL/PSYCH: NEGATIVE EXCEPT FOR HPI HEMATOLOGIC/LYMPHATIC: NEGATIVE EXCEPT FOR HPI ALL SYSTEMS NEGATIVE, EXCEPT NOTED ABOVE. 13 POINT REVIEW OF SYSTEMS ASSESSED AND ALL NEGATIVE EXCEPT FOR ABOVE. Initial Vital Sign VS Vital Signs Date Time Temp Pulse Resp B/P (MAP) Pulse Ox O2 Delivery O2 Flow Rate FiO2 10/21/24 19:18 97.3 72 20 122/80 99 Room Air 10/21/24 21:54 0 21 Physical Exam Dictation VITAL SIGNS REVIEWED GENERAL APPEARANCE: ALERT, ORIENTED X 3, WEAK AND MILDLY DEBILITATED HEAD AND FACE: NON-TRAUMATIC. EYES: PERRL, PINK CONJUNCTIVAS, EYELID NO TRAUMA, ANTERIOR CHAMBER WITH ARCUS SENILIS. EARS: PINNAS INTACT AND NO SIGNS OF TRAUMA OR ERYTHEMA EAR CANALS CLEAR AND NO DISCHARGE TM NO ERYTHEMA NOSE: NO DISCHARGE, NO BLEEDING. OROPHARYNX: MOUTH NORMAL, TONGUE PINK, PHARYNX CLEAR,NO ERYTHEMA, TONSILS NO EXUDATES, NO ABSCESSES NOTED, MUCOUS MEMBRANE MOIST NECK: SUPPLE, NON-TENDER, NO THYROMEGALY, NO MASSES, NO JVD, NO BRUITS BREAST:DEFERRED CHEST:NO TENDERNESS, NO CREPITUS, NO PARADOXICAL MOVEMENT, NO RETRACTIONS LUNGS:CLEAR, WELL-VENTILATED, SYMMETRIC, NO RALES, NO WHEEZING, NO RHONCHI, NO STRIDOR, GOOD BREATH SOUNDS BILATERALLY HEART: REGULAR RATE, REGULAR RHYTHM, NO MURMUR, NO GALLOPS VASCULAR: NO PERIPHERAL EDEMA, ABDOMEN: SOFT, POSITIVE BOWEL SOUNDS, NONDISTENDED, NO GUARDING, EPIGASTRIC TENDERNESS WITH PALPATION, NO REBOUND, NO MASSES NO HEPATOMEGALY, NO SPLENOMEGALY, NO RIVERA'S SIGN, NO HERNIAS. RECTAL: DEFERRED GENITAL: DEFERRED NEUROLOGICAL: NORMAL SPEECH, MOTOR FUNCTION INTACT, SENSORY FUNCTION INTACT MUSCULOSKELETAL: NECK NONTENDER, FULL RANGE OF MOTION, BACK NONTENDER, FULL RANGE OF MOTION, EXTREMITIES: NONTENDER, FULL RANGE OF MOTION SKIN: COLOR PINK, DRY, NO TURGOR, NO RASH, NO LACERATIONS, NO ABRASIONS, NO CONTUSIONS. LYMPHATIC: DEFERRED Results (Laboratory/Radiology) Laboratory/Radiology Laboratory Tests Test 10/21/24 19:37 White Blood Count 8.2 K/uL (4.8-10.8) Red Blood Count 4.55 MIL/uL (4.00-5.50) Hemoglobin 13.1 g/dL (12.0-16.0) Hematocrit 41.3 % (36-48) Mean Corpuscular Volume 90.8 fL (79-99) Mean Corpuscular Hemoglobin 28.8 pg (27.0-33.0) Mean Corpuscular Hemoglobin Concent 31.7 g/dL (32.0-36.0) L Red Cell Distribution Width 15.2 % (11.0-15.5) Platelet Count 271 K/uL (130-400) Mean Platelet Volume 10.8 fL (7.5-10.5) H Immature Granulocyte % (Auto) 0.5 % (0-1) Neutrophils (%) (Auto) 62.8 % (40.0-77.0) Lymphocytes (%) (Auto) 26.5 % (21.0-51.0) Monocytes (%) (Auto) 9.0 % (3.0-13.0) Eosinophils (%) (Auto) 0.7 % (0.0-8.0) Basophils (%) (Auto) 0.5 % (0.0-5.0) Neutrophils # (Auto) 5.1 K/uL (1.8-7.7) Lymphocytes # (Auto) 2.2 K/uL (1.0-4.8) Monocytes # (Auto) 0.7 K/uL (0.1-1.0) Eosinophils # (Auto) 0.06 K/uL (0.00-0.70) Basophils # (Auto) 0.04 K/uL (0.00-0.20) Absolute Immature Granulocyte (auto 0.04 K/uL (0-1) Nucleated Red Blood Cells 0.0 % (0.0-0.19) Sodium Level 145 mmol/L (136-145) Potassium Level 3.4 mmol/L (3.5-5.1) L Chloride Level 104 mmol/L (101-111) Carbon Dioxide Level 30 mmol/L (21-32) Blood Urea Nitrogen 14 mg/dL (7-18) Creatinine 1.3 mg/dL (0.5-1.0) H Glomerular Filtration Rate Calc 50 mL/min (>90) Random Glucose 147 mg/dL (70-105) H Total Calcium 10.2 mg/dL (8.5-10.1) H Lipase 46 U/L (16-77) Labs Reviewed?: Yes ED Course ED Course Orders Procedure Category Date Status Time Cbc With Differential LAB 10/21/24 Complete 19:22 Urinalysis Profile LAB 10/21/24 In Process 19:22 0.9%Nacl 1000ml (Ns PHA 10/21/24 Complete 1000ml) 19:30 Ondansetron 4mg Inj PHA 10/21/24 Complete (Zofran 4mg Inj) 19:30 Pantoprazole 40mg Inj PHA 10/21/24 Complete (Protonix 40mg Inj 19:30 Lipase LAB 10/21/24 Complete 19:22 Basic Metabolic Panel LAB 10/21/24 Complete 19:22 Potassium Bicarb/Cit PHA 10/21/24 Complete Ac 25meq (K-Lyte Ta 21:30 Current Medications Medications (Trade) Dose Ordered Sig/Glynn Route PRN Reason Start Time Stop Time Status Last Admin Dose Admin Ondansetron HCl (zoFRAN 4MG INJ) 4 mg ONCE ONCE IVP 10/21/24 19:30 10/21/24 19:31 DC 10/21/24 21:47 Pantoprazole Sodium (PROTonix 40MG INJ) 40 mg ONCE ONCE IVP 10/21/24 19:30 10/21/24 19:31 DC 10/21/24 21:47 Potassium Bicarbonate (K-Lyte Tablet Eff 25 Meq Tablet.eff) 25 meq ONCE ONCE PO 10/21/24 21:30 10/21/24 21:31 DC 10/21/24 21:47 Sodium Chloride 1,000 ml @ 0 mls/hr ONCE ONCE IV 10/21/24 19:30 10/21/24 19:31 DC 10/21/24 21:47 Vital Signs Date Time Temp Pulse Resp B/P (MAP) Pulse Ox O2 Delivery O2 Flow Rate FiO2 10/21/24 21:54 98.2 75 20 120/80 98 Room Air* 0 21 10/21/24 19:18 97.3 72 20 122/80 99 Room Air Medical Decision Making MDM MDM: Differential diagnosis: Dehydration, anemia, electrolyte abnormality There are no social concerns with this patient. Prescription drug management Prescriptions will include: None Medical management and examination interpretation discussions were had by me with other qualified healthcare professionals as indicated for the patient's care. DX & DISP Disposition: Discharge Departure Impression: Primary Impression: Dehydration Condition: Stable Referrals: ASIF BEARD (PCP) Time of Disposition: 22:47 I have reviewed the case, and I agree with, Diagnosis and Plan I performed the substantive portion of the visit. I have reviewed and personally made and approve the management plan that is documented in the note by myself or the LUCRECIA. I acknowledge for responsibility for the patient's m anagement plan. MARCO ENNIS NP Oct 21, 2024 19:24 EMY TSE Oct 21, 2024 22:48
[2024-10-21 19:48] LABS: BASOPHILS # (AUTO) 0.04 K/uL (0.00-0.20); BASOPHILS % (AUTO) 0.5 % (0.0-5.0); EOSINOPHILS # (AUTO) 0.06 K/uL (0.00-0.70); EOSINOPHILS % (AUTO) 0.7 % (0.0-8.0); HEMATOCRIT 41.3 % (36-48); IMMATURE GRANULOCYTE ABSOLUTE 0.04 K/uL (0-1); LYMPHOCYTES # (AUTO) 2.2 K/uL (1.0-4.8); LYMPHOCYTES % (AUTO) 26.5 % (21.0-51.0); MEAN CORPUSCULAR HEMOGLOBIN 28.8 pg (27.0-33.0); MEAN CORPUSCULAR HGB CONC 31.7 g/dL (32.0-36.0); MEAN CORPUSCULAR VOLUME 90.8 fL (79-99); MONOCYTES # (AUTO) 0.7 K/uL (0.1-1.0); NEUTROPHILS # (AUTO) 5.1 K/uL (1.8-7.7); NEUTROPHILS % (AUTO) 62.8 % (40.0-77.0); PLATELET COUNT (AUTO) 271 K/uL (130-400); RED BLOOD CELL COUNT(AUTO) 4.55 MIL/uL (4.00-5.50); RED CELL DISTRIBUTION WIDTH 15.2 % (11.0-15.5); WHITE BLOOD COUNT (AUTO) 8.2 K/uL (4.8-10.8)
[2024-10-21 19:58] LABS: CREATININE 1.3 mg/dL (0.5-1.0); POTASSIUM 3.4 mmol/L (3.5-5.1)
[2024-10-21] MEDS: 0.9%NACL 1000ML 1,000 ML IV ONE (21:47)
[2024-10-21] MEDS: ondanSETRON 4MG INJ IVP ONE (21:47)
[2024-10-21] MEDS: PANTOPrazole 40 MG/VIAL IVP ONE (21:47)
[2024-10-21] MEDS: PoTASSium BIcarbonate/CIT AC 25 MEQ TABLET.EFF PO ONE (21:47)
[2024-10-21 21:54] VITALS: BP 120/80; PULSE 75; RESP 20; TEMP 98.3; O2SAT 98
[2024-10-21 23:18] LABS: APPEARANCE,URINE TURBID (CLEAR); BILIRUBIN,URINE NEGATIVE (NEGATIVE); COLOR,URINE LIGHT-ORANGE (YELLOW); GLUCOSE, URINE (UA) >=1000 mg/dL (NEGATIVE); KETONES,URINE 60 mg/dL (NEGATIVE); LEUKOCYTE ESTERASE ,URINE 250 Leu/uL (NEGATIVE); NITRATE,URINE NEGATIVE (NEGATIVE); PROTEIN,URINE 30 mg/dL (NEGATIVE)
[2024-10-21 23:22] LABS: ADD UA MICROSCOPIC YES
[2024-10-21 23:29] LABS: BACTERIA,URINE FEW /HPF (None Seen); MUCUS,URINE RARE LPF (None Seen); SQUAMOUS EPITHELIAL CELL,UR MANY /HPF (0-2); WBC CLUMP FEW /HPF (0-1)
[2024-10-28] MEDS ORDERED: THIA100T91 PO (15:16)
[2024-10-28] MEDS ORDERED: ONDA-243 PO (15:16)
[2024-10-28] MEDS ORDERED: MVIT PO (15:16)
== END 2024-10-21 22:59 | disposition home or self-care (01) ==
LOC: EDH 19:12
DX: E86.0 Dehydration (principal); E11.9 Type 2 diabetes mellitus without complications; G40.909 Epilepsy, unspecified, not intractable, without status epilepticus; I10 Essential (primary) hypertension; Z79.84 Long term (current) use of oral hypoglycemic drugs; Z79.890 Hormone replacement therapy; Z79.899 Other long term (current) drug therapy; Z90.49 Acquired absence of other specified parts of digestive tract; Z90.89 Acquired absence of other organs; Z98.84 Bariatric surgery status
CPT/HCPCS: 99284; 96374; 96361; 96375; J2405; J2470; 36415; 80048; 81001; 83690; 85025; 87086; J7030